=== PATIENT | male | born 1955 | race Caucasian/White ===

== ENCOUNTER 2021-07-31 10:37 | Emergency (ER) | payer MEDICARE, OTHER ==
[~2021-07-31] VITALS: Ht 175.3 cm; Wt 93.4 kg
[2021-07-31 12:08] LABS: BILIRUBIN,URINE NEGATIVE (NEGATIVE); COLOR,URINE YELLOW (YELLOW); LEUKOCYTE ESTERASE ,URINE NEGATIVE (NEGATIVE); NITRITE, URINE NEGATIVE (NEGATIVE); PROTEIN,URINE NEGATIVE (NEGATIVE); UGLUCOSE NEGATIVE (NEGATIVE); UROBILINOGEN,URINE 0.2 EU/dL (0.2)
[2021-07-31 12:40] LABS: BASOPHILS # (AUTO) 0.1 K/uL (0.0-0.2); EOSINOPHILS % (AUTO) 1.4 % (0.0-6.0); HEMATOCRIT 40 % (39-51); HEMOGLOBIN 13.6 g/dL (13.5-17.5); LYMPHOCYTES # (AUTO) 2.2 K/uL (0.8-4.8); MEAN CORPUSCULAR HGB CONC 34 g/dl (31.0-36.0); MEAN CORPUSCULAR VOLUME 86 fL (80-96); MONOCYTES # (AUTO) 0.9 K/uL (0.1-1.30); MONOCYTES % (AUTO) 9.4 % (2.0-12.0); NEUTROPHILS # (AUTO) 6.3 K/uL (1.8-8.9); NEUTROPHILS % (AUTO) 65.2 % (43.0-81.0); PLATELET COUNT (AUTO) 189 K/uL (150-450); WHITE BLOOD COUNT (AUTO) 9.7 K/uL (4.3-11.0)
[2021-07-31 12:53] LABS: CALCIUM, SERUM 8.9 mg/dL (8.5-10.1); CARBON DIOXIDE 26 mmol/L (21-32); CHLORIDE 105 mmol/L (98-107); CREATININE 0.9 mg/dL (0.6-1.3); GLUCOSE 108 mg/dL (74-106); POTASSIUM 3.8 mmol/L (3.5-5.1); SODIUM SERUM 141 mmol/L (136-145); UREA NITROGEN, BLOOD 17 mg/dL (7-18)
[2021-07-31 12:58] LABS: ALANINE AMINOTRANSFERASE 46 U/L (12-78); ALBUMIN 3.6 g/dL (3.4-5.0); ALCOHOL, BLOOD < 3 mg/dL (0-0); ALKALINE PHOSPHATASE 114 U/L (46-116); ASPARTATE AMINOTRANSFERASE 37 U/L (15-37); BILIRUBIN,DIRECT 0.2 mg/dL (0.0-0.2); BILIRUBIN,TOTAL 0.7 mg/dL (0.2-1.0); TOTAL PROTEIN, SERUM 7.2 g/dL (6.4-8.2)
[2021-07-31 13:45] LABS: ACETAMINOPHEN 0 ug/ml (10-30)
[2021-07-31 20:01] VITALS: BP 147/78
== END 2021-07-31 20:10 ==
LOC: ER 10:38
DX: F29 Unspecified psychosis not due to a substance or known physiological condition (principal); Z91.14 Patient's other noncompliance with medication regimen; Z88.8 Allergy status to other drugs, medicaments and biological substances; F17.200 Nicotine dependence, unspecified, uncomplicated; I10 Essential (primary) hypertension; Z20.822 Contact with and (suspected) exposure to COVID-19
CPT/HCPCS: 36415; 80048-TC; 80076-TC; 85025-TC; C9803; G0480

== ENCOUNTER 2022-01-09 16:57 | Emergency (ER) | payer MEDICARE, OTHER ==
[~2022-01-09] VITALS: Ht 175.3 cm; Wt 90.7 kg
--- NOTE | 2022-01-09 17:15 | NUR ---
THE PATIENT BIBS FOR C/O SUICIDAL IDEATION, REQUESTING VOLUNTARY ADMISSION TO [facility],PLAN TO WALK ON [address] DENIES HI. DENIES HAVING ANY VISUAL OR AUDITORY HALLUCINATIONS. WILL CONTINUE TO MONITOR THE PATIENT.
[2022-01-09 18:27] LABS: BASOPHILS # (AUTO) 0.2 K/uL (0.0-0.2); BASOPHILS % (AUTO) 1.5 % (0.0-2.0); EOSINOPHILS % (AUTO) 2.5 % (0.0-6.0); HEMATOCRIT 38 % (39-51); HEMOGLOBIN 12.3 g/dL (13.5-17.5); LYMPHOCYTES # (AUTO) 3.5 K/uL (0.8-4.8); LYMPHOCYTES % (AUTO) 29.7 % (20.0-44.0); MEAN CORPUSCULAR HGB CONC 33 g/dl (31.0-36.0); MEAN CORPUSCULAR VOLUME 86 fL (80-96); MONOCYTES # (AUTO) 1.2 K/uL (0.1-1.30); MONOCYTES % (AUTO) 10.6 % (2.0-12.0); NEUTROPHILS # (AUTO) 6.5 K/uL (1.8-8.9); NEUTROPHILS % (AUTO) 55.7 % (43.0-81.0); RED BLOOD CELL COUNT(AUTO) 4.41 MIL/uL (4.5-6.0); WHITE BLOOD COUNT (AUTO) 11.7 K/uL (4.3-11.0)
[2022-01-09 18:36] LABS: CALCIUM, SERUM 8.5 mg/dL (8.5-10.1); CARBON DIOXIDE 26 mmol/L (21-32); CHLORIDE 106 mmol/L (98-107); CREATININE 1.1 mg/dL (0.6-1.3); GLUCOSE 109 mg/dL (74-106); POTASSIUM 3.7 mmol/L (3.5-5.1); SODIUM SERUM 139 mmol/L (136-145); UREA NITROGEN, BLOOD 16 mg/dL (7-18)
[2022-01-09 18:43] LABS: BILIRUBIN,URINE NEGATIVE (NEGATIVE); COLOR,URINE YELLOW (YELLOW); LEUKOCYTE ESTERASE ,URINE NEGATIVE (NEGATIVE); NITRITE, URINE NEGATIVE (NEGATIVE); PROTEIN,URINE NEGATIVE (NEGATIVE); UGLUCOSE NEGATIVE (NEGATIVE)
[2022-01-09 18:46] LABS: ALANINE AMINOTRANSFERASE 32 U/L (12-78); ALBUMIN 3.2 g/dL (3.4-5.0); ALKALINE PHOSPHATASE 122 U/L (46-116); ASPARTATE AMINOTRANSFERASE 31 U/L (15-37); BILIRUBIN,DIRECT 0.1 mg/dL (0.0-0.2); BILIRUBIN,TOTAL 0.3 mg/dL (0.2-1.0); TOTAL PROTEIN, SERUM 6.7 g/dL (6.4-8.2)
[2022-01-09 18:50] LABS: BACTERIA,URINE None seen /HPF (None Seen); MUCUS,URINE Many /LPF (None Seen); RBC,URINE 0-2 /HPF (0-2); SQUAMOUS EPITHELIAL CELL,UR 0-2 /HPF (None Seen); WBC,URINE 0-2 /HPF (0-3)
[2022-01-09 18:58] LABS: ALCOHOL, BLOOD < 3 mg/dL (0-0); PLATELET COUNT (AUTO) 201 K/uL (150-450)
--- NOTE | 2022-01-09 19:09 | NUR ---
covid antigen swab done and sent to the lab
[2022-01-09 21:00] VITALS: BP 128/68
--- NOTE | 2022-01-09 21:48 | NUR ---
FAXED FACSHEET AND CLINICALS TO [facility]N INTAKE
--- NOTE | 2022-01-09 22:56 | NUR ---
PATIENT ACCEPTED UNDER DR RAMESH AT [facility] REPORT [phone]
--- NOTE | 2022-01-09 23:03 | NUR ---
[facility] ETA: 60-45 MIN
--- NOTE | 2022-01-10 00:02 | NUR ---
REPORT GIVEN TO JR
--- NOTE | 2022-01-10 00:15 | NUR ---
REPORT GIVEN TO EMS AT BEDSIDE
== END 2022-01-10 00:25 ==
LOC: ER 17:09
DX: R45.851 Suicidal ideations (principal); I10 Essential (primary) hypertension; F32.A Depression, unspecified; F17.200 Nicotine dependence, unspecified, uncomplicated; S30.810A Abrasion of lower back and pelvis, initial encounter; W45.0XXA Nail entering through skin, initial encounter; Y92.89 Other specified places as the place of occurrence of the external cause; Z59.00 Homelessness unspecified; Z20.822 Contact with and (suspected) exposure to COVID-19
CPT/HCPCS: 36415; 80048-TC; 80076-TC; 81001; 85025-TC; C9803; G0480

== ENCOUNTER 2022-01-21 08:09 | Emergency (ER) | payer MEDICARE, OTHER ==
[~2022-01-21] VITALS: Ht 175.3 cm; Wt 90.7 kg
--- NOTE | 2022-01-21 08:13 | NUR ---
BIBS WITH SI -HI, STATED HE WANTS TO WALK ONTO THE [address] IN [place], STATED THAT HIS FAMILY HAS ALL AND HE HAS BEEN DEPRESSED SINCE. PT IS AMBULATORY WITHOUT ASSISTANCE. VITALS ARE WITHIN NORMAL [place]. PT WAS WANDED BY SECURITY AND BELONGINGS COLLECTED, PT STICKER PLACED ON BELONGING BAG AND STORED. SAEFTY MEASURE APPLIED.
--- NOTE | 2022-01-21 08:14 | NUR ---
Quinn sinha in [facility] - 01/21/22 at 0857 by SILAS AB TEST COLLECTED AND SENT
--- NOTE | 2022-01-21 08:14 | NUR ---
COVID TEST COLLECTED AND SENT
--- NOTE | 2022-01-21 08:17 | NUR ---
SANTOSH JAIN TO PROVIDE URINE AT THIS TIME, PROVIDED WITH URINE SAMPLE CUP.
[2022-01-21] MEDS ORDERED: LORAZEPAM 1 MG TABLET PO ONE (09:00)
[2022-01-21] MEDS ORDERED: LORAZEPAM 1 MG TABLET ONE (09:15)
[2022-01-21 09:16] LABS: CALCIUM, SERUM 8.5 mg/dL (8.5-10.1); CARBON DIOXIDE 25 mmol/L (21-32); CHLORIDE 104 mmol/L (98-107); CREATININE 0.9 mg/dL (0.6-1.3); GLUCOSE 124 mg/dL (74-106); POTASSIUM 4.1 mmol/L (3.5-5.1); SODIUM SERUM 135 mmol/L (136-145); UREA NITROGEN, BLOOD 18 mg/dL (7-18)
[2022-01-21 09:22] LABS: ALANINE AMINOTRANSFERASE 36 U/L (12-78); ALBUMIN 2.9 g/dL (3.4-5.0); ALKALINE PHOSPHATASE 123 U/L (46-116); ASPARTATE AMINOTRANSFERASE 40 U/L (15-37); BILIRUBIN,DIRECT 0.1 mg/dL (0.0-0.2); BILIRUBIN,TOTAL 0.4 mg/dL (0.2-1.0); TOTAL PROTEIN, SERUM 6.8 g/dL (6.4-8.2)
[2022-01-21 09:23] LABS: ACETAMINOPHEN 0 ug/ml (10-30); ALCOHOL, BLOOD < 3 mg/dL (0-0)
[2022-01-21 09:57] LABS: BASOPHILS # (AUTO) 0.1 K/uL (0.0-0.2); BASOPHILS % (AUTO) 1.2 % (0.0-2.0); HEMATOCRIT 39 % (39-51); HEMOGLOBIN 12.6 g/dL (13.5-17.5); LYMPHOCYTES # (AUTO) 2.7 K/uL (0.8-4.8); LYMPHOCYTES % (AUTO) 28.6 % (20.0-44.0); MEAN CORPUSCULAR HGB CONC 33 g/dl (31.0-36.0); MEAN CORPUSCULAR VOLUME 86 fL (80-96); MONOCYTES # (AUTO) 1.1 K/uL (0.1-1.30); MONOCYTES % (AUTO) 11.8 % (2.0-12.0); NEUTROPHILS # (AUTO) 5.1 K/uL (1.8-8.9); NEUTROPHILS % (AUTO) 55.4 % (43.0-81.0); PLATELET COUNT (AUTO) 173 K/uL (150-450); RED BLOOD CELL COUNT(AUTO) 4.51 MIL/uL (4.5-6.0); WHITE BLOOD COUNT (AUTO) 9.3 K/uL (4.3-11.0)
--- NOTE | 2022-01-21 10:43 | NUR ---
PT UNABLE TO PROVIDE URINE AT THIS TIME, MILK PROVIDED TO PT.
--- NOTE | 2022-01-21 11:02 | NUR ---
FAXED CLINICALS TO [facility]
--- NOTE | 2022-01-21 11:14 | NUR ---
ASK PT TO PROVIDE URINE SAID THAT HE NEEDED MORE MILK, MILK PROVIDED. WILL ENCOURAGE AGAIN.
[2022-01-21 13:07] LABS: BILIRUBIN,URINE NEGATIVE (NEGATIVE); COLOR,URINE YELLOW (YELLOW); LEUKOCYTE ESTERASE ,URINE NEGATIVE (NEGATIVE); NITRITE, URINE NEGATIVE (NEGATIVE); PROTEIN,URINE NEGATIVE (NEGATIVE); UGLUCOSE NEGATIVE (NEGATIVE); UROBILINOGEN,URINE 0.2 EU/dL (0.2)
[2022-01-21 13:45] VITALS: BP 139/79
--- NOTE | 2022-01-21 18:01 | NUR ---
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
--- NOTE | 2022-01-21 18:55 | NUR ---
REPORT GIVEN TO MARIZA FOR [facility]
== END 2022-01-21 19:11 ==
LOC: ER 08:12
DX: R45.851 Suicidal ideations (principal); I10 Essential (primary) hypertension; Z86.69 Personal history of other diseases of the nervous system and sense organs; Z88.8 Allergy status to other drugs, medicaments and biological substances; E11.9 Type 2 diabetes mellitus without complications; Z20.822 Contact with and (suspected) exposure to COVID-19
CPT/HCPCS: 36415; 80048-TC; 80076-TC; 85025-TC; C9803; G0480

== ENCOUNTER 2022-02-07 17:51 | Emergency (ER) | payer MEDICARE, OTHER ==
[~2022-02-07] VITALS: Ht 175.3 cm; Wt 90.7 kg
--- NOTE | 2022-02-07 18:25 | NUR ---
SECURITY PERSONAL AT BEDSIDE FOR WANDING
--- NOTE | 2022-02-07 18:26 | NUR ---
UNABLE TO PROVIDE URINE AT THIS TIME
--- NOTE | 2022-02-07 18:26 | NUR ---
COVID SWAB DONE AND SENT TO LAB
[2022-02-07 18:28] VITALS: BP 145/92
--- NOTE | 2022-02-07 18:45 | NUR ---
Pt refusing any and all interventions at this time. Dr Doshi aware
--- NOTE | 2022-02-07 19:02 | NUR ---
Pt No longer in the room - Eloped
== END 2022-02-07 19:03 | disposition home or self-care (01) ==
LOC: ER 18:10
DX: R45.851 Suicidal ideations (principal); I10 Essential (primary) hypertension; E11.9 Type 2 diabetes mellitus without complications; F32.A Depression, unspecified; F17.200 Nicotine dependence, unspecified, uncomplicated; Z60.2 Problems related to living alone

== ENCOUNTER 2022-03-23 11:55 | Emergency (ER) | payer MEDICARE, OTHER ==
[~2022-03-23] VITALS: Ht 175.3 cm; Wt 90.7 kg
[2022-03-23 12:59] LABS: BASOPHILS # (AUTO) 0.1 K/uL (0.0-0.2); EOSINOPHILS % (AUTO) 3.1 % (0.0-6.0); HEMATOCRIT 43 % (39-51); HEMOGLOBIN 13.9 g/dL (13.5-17.5); LYMPHOCYTES # (AUTO) 3.9 K/uL (0.8-4.8); MEAN CORPUSCULAR HGB CONC 32 g/dl (31.0-36.0); MEAN CORPUSCULAR VOLUME 85 fL (80-96); MONOCYTES # (AUTO) 1.1 K/uL (0.1-1.30); MONOCYTES % (AUTO) 9.4 % (2.0-12.0); NEUTROPHILS # (AUTO) 6.4 K/uL (1.8-8.9); NEUTROPHILS % (AUTO) 53.5 % (43.0-81.0); PLATELET COUNT (AUTO) 198 K/uL (150-450); RED BLOOD CELL COUNT(AUTO) 5.02 MIL/uL (4.5-6.0)
--- NOTE | 2022-03-23 13:02 | NUR ---
COVID SWAB DONE AND SENT TO LAB
[2022-03-23 13:23] LABS: ALANINE AMINOTRANSFERASE 36 U/L (12-78); ALBUMIN 3.7 g/dL (3.4-5.0); ALCOHOL, BLOOD < 3 mg/dL (0-0); ALKALINE PHOSPHATASE 123 U/L (46-116); ASPARTATE AMINOTRANSFERASE 40 U/L (15-37); BILIRUBIN,DIRECT 0.2 mg/dL (0.0-0.2); BILIRUBIN,TOTAL 0.6 mg/dL (0.2-1.0); CALCIUM, SERUM 9.1 mg/dL (8.5-10.1); CARBON DIOXIDE 31 mmol/L (21-32); CHLORIDE 102 mmol/L (98-107); CREATININE 0.9 mg/dL (0.6-1.3); GLUCOSE 103 mg/dL (74-106); POTASSIUM 3.9 mmol/L (3.5-5.1); SODIUM SERUM 139 mmol/L (136-145); TOTAL PROTEIN, SERUM 7.4 g/dL (6.4-8.2); UREA NITROGEN, BLOOD 17 mg/dL (7-18)
[2022-03-23 13:25] LABS: ACETAMINOPHEN < 10 ug/ml (10-30)
[2022-03-23 13:59] LABS: BILIRUBIN,URINE NEGATIVE (NEGATIVE); COLOR,URINE YELLOW (YELLOW); LEUKOCYTE ESTERASE ,URINE NEGATIVE (NEGATIVE); NITRITE, URINE NEGATIVE (NEGATIVE); PROTEIN,URINE TRACE mg/dl (NEGATIVE); UGLUCOSE NEGATIVE (NEGATIVE); UROBILINOGEN,URINE 0.2 EU/dL (0.2)
[2022-03-23 14:19] LABS: BACTERIA,URINE Few /HPF (None Seen); RBC,URINE 0-2 /HPF (0-2); WBC,URINE 0-2 /HPF (0-3)
--- NOTE | 2022-03-23 15:00 | NUR ---
FAXED CLINICALS TO [facility] INTAKE.
--- NOTE | 2022-03-23 16:12 | NUR ---
ACCEPTED PER RAFAEL OLIVIA, WILL SEND ADMITTING INFO
--- NOTE | 2022-03-23 16:30 | NUR ---
ACCEPTED TO [facility] UNDER DR BOYKIN NUMBER FOR REPORT [phone] ASKED TO SET UP TRANSPORTATION AFTER SHIFT ([phone])
--- NOTE | 2022-03-23 16:37 | NUR ---
[facility] CALLED FOR TRANSPORT TO [facility] REQUESTED > CHANGE OF SHIFT 2000 PULP AND PAPER TESTER TIME PER ANNI.
--- NOTE | 2022-03-23 19:52 | NUR ---
REPORT GIVEN TO RACQUEL OLIVIA
--- NOTE | 2022-03-23 20:00 | NUR ---
PT RECEIVED IN BED 18. AWAITING TRANSFER TO [facility]. PT IS ALREADY MEDICALLY CLEARED. NO DISTRESS NOTED. PT WAS PLACED IN GOWN AND BELONGINGS TAKEN.
--- NOTE | 2022-03-23 21:51 | NUR ---
[facility] AMBULANCE AT BEDSIDE FOR TRANSPORT TO [facility]. PT IS IN STABLE CONDITION FOR TRANSPORT. NAD NOTED. PT IS AMBUALTORY.
[2022-03-23 21:52] VITALS: BP 140/83
== END 2022-03-23 21:54 ==
LOC: ER 12:00
DX: Z20.822 Contact with and (suspected) exposure to COVID-19 (principal); E11.9 Type 2 diabetes mellitus without complications; G40.909 Epilepsy, unspecified, not intractable, without status epilepticus; Z91.14 Patient's other noncompliance with medication regimen; I10 Essential (primary) hypertension; F17.200 Nicotine dependence, unspecified, uncomplicated; D72.829 Elevated white blood cell count, unspecified; R74.01 Elevation of levels of liver transaminase levels
CPT/HCPCS: 36415; 80048-TC; 80076-TC; 81001; 85025-TC; C9803; G0480

== ENCOUNTER 2024-06-01 14:53 | Inpatient (IN) | payer MEDICARE, OTHER ==
[~2024-06-01] VITALS: Ht 175.3 cm; Wt 90.7 kg
[2024-06-01] MEDS ORDERED: OLANZAPINE 10 MG VIAL IM ONE (15:16)
[2024-06-01] MEDS ORDERED: LORAZEPAM INJ 2 MG/ML VIAL ONE (15:17)
[2024-06-01] MEDS: LORAZEPAM INJ 2 MG/ML VIAL IM ONE (15:20)
[2024-06-01] MEDS: OLANZAPINE 10 MG VIAL IM ONE (15:21)
[2024-06-01] MEDS ORDERED: diphenhydrAMINE HCL 50 MG/ML VIAL ONE (16:12)
[2024-06-01] MEDS: diphenhydrAMINE HCL 50 MG/ML VIAL IM ONE (16:13)
[2024-06-01 16:47] LABS: BASOPHILS # (AUTO) 0.2 K/uL (0.0-0.2); BASOPHILS % (AUTO) 1.5 % (0.0-2.0); EOSINOPHILS # (AUTO) 0.3 K/uL (0.0-0.7); EOSINOPHILS % (AUTO) 2.3 % (0.0-6.0); HEMATOCRIT 41 % (39-51); HEMOGLOBIN 13.7 g/dL (13.5-17.5); LYMPHOCYTES # (AUTO) 2.3 K/uL (0.8-4.8); LYMPHOCYTES % (AUTO) 18.9 % (20.0-44.0); MEAN CORPUSCULAR HEMOGLOBIN 30 PG (26.0-33.0); MEAN CORPUSCULAR HGB CONC 33 g/dl (31.0-36.0); MEAN CORPUSCULAR VOLUME 89 fL (80-96); MONOCYTES # (AUTO) 0.9 K/uL (0.1-1.30); MONOCYTES % (AUTO) 6.9 % (2.0-12.0); NEUTROPHILS # (AUTO) 8.7 K/uL (1.8-8.9); NEUTROPHILS % (AUTO) 70.4 % (43.0-81.0); PLATELET COUNT (AUTO) 196 K/uL (150-450); RED BLOOD CELL COUNT(AUTO) 4.65 MIL/uL (4.5-6.0); RED CELL DISTRIBUTION WIDTH 15.4 % (11.5-15.0); WHITE BLOOD COUNT (AUTO) 12.4 K/uL (4.3-11.0)
[2024-06-01 16:57] LABS: ALANINE AMINOTRANSFERASE 39 U/L (12-78); ALBUMIN 3.5 g/dL (3.4-5.0); ALCOHOL, BLOOD < 3 mg/dL (0-10); ALKALINE PHOSPHATASE 159 U/L (46-116); ASPARTATE AMINOTRANSFERASE 26 U/L (15-37); BILIRUBIN,DIRECT 0.2 mg/dL (0.0-0.2); BILIRUBIN,TOTAL 0.6 mg/dL (0.2-1.0); CALCIUM, SERUM 8.8 mg/dL (8.5-10.1); CARBON DIOXIDE 27 mmol/L (21-32); CHLORIDE 102 mmol/L (98-107); GLUCOSE 107 mg/dL (74-106); POTASSIUM 3.5 mmol/L (3.5-5.1); SALICYLATE 2.9 mg/dL (2.8-20.0); SODIUM SERUM 136 mmol/L (136-145); TOTAL PROTEIN, SERUM 6.8 g/dL (6.4-8.2); UREA NITROGEN, BLOOD 17 mg/dL (7-18)
[2024-06-01 17:01] LABS: ACETAMINOPHEN 0 ug/ml (10-30)
[2024-06-01 18:23] LABS: APPEARANCE,URINE Clear (CLEAR); BILIRUBIN,URINE Negative (NEGATIVE); BLOOD, URINE Negative Ery/uL (NEGATIVE); COLOR,URINE YELLOW (YELLOW); KETONES,URINE Negative (NEGATIVE); LEUKOCYTE ESTERASE ,URINE Negative (NEGATIVE); NITRITE, URINE Negative (NEGATIVE); PH,URINE 6.5 (5.0-8.0); PROTEIN,URINE Negative (NEGATIVE); UGLUCOSE Negative (NEGATIVE); UROBILINOGEN,URINE 0.2 EU/dL (0.2)
[2024-06-01 18:33] LABS: AMPHETAMINE, URINE NEGATIVE (NEGATIVE); BARBITURATE, URINE NEGATIVE (NEGATIVE); BENZODIAZEPINE, URINE NEGATIVE (NEGATIVE); CANNABINOID, URINE NEGATIVE (NEGATIVE); COCCAINE, URINE NEGATIVE (NEGATIVE); OPIATE, URINE NEGATIVE (NEGATIVE); PHENCYCLIDINE SCREEN,URINE NEGATIVE (NEGATIVE)
[2024-06-01] MEDS ORDERED: ASPI-1169 PO (21:20)
[2024-06-01] MEDS ORDERED: AMLO-213 PO (21:20)
[2024-06-01] MEDS ORDERED: ARIP15TA3 PO (21:20)
[2024-06-01] MEDS ORDERED: LISI20TA30 PO (21:20)
[2024-06-01] MEDS ORDERED: BUPR150T10 PO (21:20)
[2024-06-02] MEDS ORDERED: LORAZEPAM 0.5 MG TABLET PO PRN (03:30)
[2024-06-02] MEDS ORDERED: MAG HYDROX/AL HYDROX/SIMETH 30 ML UDC PO PRN (03:30)
[2024-06-02] MEDS ORDERED: ACETAMINOPHEN 325 MG TABLET PO PRN (03:30)
[2024-06-02] MEDS ORDERED: TEMAZEPAM 7.5 MG CAPSULE PO PRN (03:30)
[2024-06-02] MEDS ORDERED: MAGNESIUM HYDROXIDE 30 ML UDC PO PRN (03:30)
[2024-06-02] MEDS: BLOOD SUGAR DIAGNOSTIC 1 EACH STRIP IN ONE (03:40)
[2024-06-02 08:00] VITALS: BP 107/91; TEMP 97.8; O2SAT 97
[2024-06-02] MEDS: risperiDONE 1 MG TABLET PO SCH (13:42)
[2024-06-02] MEDS: DIVALPROEX SODIUM 500 MG TABLET.DR PO SCH (13:42)
[2024-06-02 16:00] VITALS: BP 141/69; TEMP 98.9; O2SAT 96
[2024-06-02 20:25] VITALS: BP 162/110; TEMP 98.2; O2SAT 98
[2024-06-02] MEDS: TEMAZEPAM 7.5 MG CAPSULE PO PRN (20:46)
[2024-06-02 21:15] VITALS: BP 140/90; TEMP 98.3; O2SAT 98
[2024-06-03 08:20] VITALS: BP 180/90; TEMP 98.1; O2SAT 98
[2024-06-03] MEDS: LISINOPRIL (20MG) 20 MG TABLET PO SCH (08:40)
[2024-06-03] MEDS: AMLODIPINE BESYLATE 10 MG TABLET PO SCH (08:40)
[2024-06-03] MEDS: ASPIRIN 81 MG TAB.CHEW PO SCH (08:41)
[2024-06-03 10:00] VITALS: BP 142/77
[2024-06-03 15:50] VITALS: BP 168/83; TEMP 98; O2SAT 98
[2024-06-03] MEDS: CLONIDINE HCL 0.1 MG TABLET PO ONE (17:17)
[2024-06-03] MEDS: risperiDONE 1 MG TABLET PO SCH (17:17)
[2024-06-03 18:45] VITALS: BP 114/46
[2024-06-03 20:00] VITALS: BP 108/54; TEMP 98.3; O2SAT 98
[2024-06-04 08:00] VITALS: BP 148/80; TEMP 97.9; O2SAT 99
[2024-06-04] MEDS: LISINOPRIL (20MG) 20 MG TABLET PO SCH (08:08)
[2024-06-04] MEDS: risperiDONE 1 MG TABLET PO SCH ×3 (08:12→21:35)
[2024-06-04] MEDS ORDERED: risperiDONE 1 MG TABLET PO SCH (13:00)
[2024-06-04] MEDS: BENZTROPINE MESYLATE (1 MG) 1 MG TABLET PO SCH (16:15)
[2024-06-04 19:47] VITALS: BP 144/65; TEMP 98.4
[2024-06-05] MEDS: HYDROCHLOROTHIAZIDE 25 MG TABLET PO SCH (13:30)
[2024-06-05 16:00] VITALS: BP 151/77; TEMP 98.6; O2SAT 98
[2024-06-05 21:14] VITALS: BP 114/49; TEMP 98.2; O2SAT 97
[2024-06-06 08:00] VITALS: BP 129/58; TEMP 98.2; O2SAT 100
[2024-06-06 16:00] VITALS: BP 165/73; TEMP 97.6; O2SAT 100
[2024-06-06] MEDS: LORAZEPAM 0.5 MG TABLET PO PRN (16:15)
[2024-06-06 21:00] VITALS: BP 168/79; TEMP 98.2; O2SAT 98
[2024-06-07 08:00] VITALS: BP 147/76; TEMP 97.9; O2SAT 96
[2024-06-07 16:00] VITALS: BP 160/77; TEMP 98.7; O2SAT 98
[2024-06-07 20:32] VITALS: BP 154/84; TEMP 98.7; O2SAT 100
[2024-06-08 08:00] VITALS: BP 153/70; TEMP 98; O2SAT 96
[2024-06-08 16:00] VITALS: BP 149/75; TEMP 98.7; O2SAT 97
[2024-06-08] MEDS: risperiDONE-M 0.5 MG TAB.RAPDIS PO SCH ×2 (17:09→21:23)
[2024-06-08] MEDS: OXCARBAZEPINE 150 MG TABLET PO SCH (17:10)
[2024-06-08 20:06] VITALS: BP 151/64; TEMP 98.5; O2SAT 96
[2024-06-08 22:32] VITALS: BP 129/98; TEMP 98.1; O2SAT 98
[2024-06-09 08:00] VITALS: BP 157/69; TEMP 98.4; O2SAT 98
[2024-06-09] MEDS: hydrALAZINE HCL 25 MG TABLET PO SCH (13:10)
[2024-06-09 16:00] VITALS: BP 155/70; TEMP 98.2; O2SAT 97
[2024-06-09 20:00] VITALS: BP 153/78; TEMP 98.4; O2SAT 98
[2024-06-10 08:00] VITALS: BP 144/82; TEMP 98.2; O2SAT 97
[2024-06-10 16:00] VITALS: BP 119/66; TEMP 97.9; O2SAT 98
[2024-06-10 20:07] VITALS: BP 140/72; TEMP 98.4; O2SAT 98
[2024-06-11 08:00] VITALS: BP 148/73; TEMP 98.6; O2SAT 98
[2024-06-11 12:08] VITALS: BP 142/67
[2024-06-12] MEDS ORDERED: BENZ0.5T43 PO (12:25)
[2024-06-12] MEDS ORDERED: HYDR12.55 PO (12:25)
[2024-06-12] MEDS ORDERED: ACET325T53 PO (12:25)
[2024-06-12] MEDS ORDERED: MAG30ORA PO (12:25)
[2024-06-12] MEDS ORDERED: LORA-258 PO (12:25)
[2024-06-12] MEDS ORDERED: MAGN400O6 PO (12:25)
[2024-06-12] MEDS ORDERED: OXCA300T15 PO (12:25)
[2024-06-12] MEDS ORDERED: TEMA7.5C12 PO (12:25)
[2024-06-12] MEDS ORDERED: RISP2TAB85 PO ×2 (12:25)
[2024-06-12] MEDS ORDERED: HYDR-4076 PO (12:25)
[2024-06-12] MEDS ORDERED: DIVA500T2 PO (12:25)
== END 2024-06-11 13:55 | DRG 885 ==
LOC: ER 15:00 → GPS 20:36
PROVIDERS: ADMIT Psychiatry & Neurology Psychosomatic Medicine
DX: F29 Unspecified psychosis not due to a substance or known physiological condition (principal); Z59.01 Sheltered homelessness; G93.40 Encephalopathy, unspecified; F25.0 Schizoaffective disorder, bipolar type; I10 Essential (primary) hypertension; F32.A Depression, unspecified; Z91.199 Patient's noncompliance with other medical treatment and regimen due to unspecified reason; G40.909 Epilepsy, unspecified, not intractable, without status epilepticus; F19.10 Other psychoactive substance abuse, uncomplicated; E11.9 Type 2 diabetes mellitus without complications; Z79.82 Long term (current) use of aspirin; Z79.899 Other long term (current) drug therapy; Z81.8 Family history of other mental and behavioral disorders; D72.829 Elevated white blood cell count, unspecified; Z88.8 Allergy status to other drugs, medicaments and biological substances
CPT/HCPCS: 36415; 80048-TC; 80076-TC; 85025-TC; G0480; J1200; J2060; J3490

== ENCOUNTER 2024-06-12 10:15 | Emergency (ER) | payer MEDICARE, OTHER ==
[~2024-06-12] VITALS: Ht 175.3 cm; Wt 90.7 kg
[~2024-06-12 10:15] MED LIST: AMLO-213 PO; ARIP15TA3 PO; ASPI-1169 PO; BUPR150T10 PO; LISI20TA30 PO
[2024-06-12] MEDS ORDERED: TEMA7.5C12 PO (12:25)
[2024-06-12] MEDS ORDERED: BENZ0.5T43 PO (12:25)
[2024-06-12] MEDS ORDERED: HYDR12.55 PO (12:25)
[2024-06-12] MEDS ORDERED: MAGN400O6 PO (12:25)
[2024-06-12] MEDS ORDERED: MAG30ORA PO (12:25)
[2024-06-12] MEDS ORDERED: RISP2TAB85 PO ×2 (12:25)
[2024-06-12] MEDS ORDERED: DIVA500T2 PO (12:25)
[2024-06-12] MEDS ORDERED: ACET325T53 PO (12:25)
[2024-06-12] MEDS ORDERED: OXCA300T15 PO (12:25)
[2024-06-12] MEDS ORDERED: HYDR-4076 PO (12:25)
[2024-06-12] MEDS ORDERED: LORA-258 PO (12:25)
[2024-06-12 14:54] VITALS: BP 159/70; TEMP 97.9; O2SAT 99
== END 2024-06-12 14:00 | disposition home or self-care (01) ==
LOC: ER 10:23
DX: F29 Unspecified psychosis not due to a substance or known physiological condition (principal); E11.9 Type 2 diabetes mellitus without complications; F17.200 Nicotine dependence, unspecified, uncomplicated; I10 Essential (primary) hypertension; Z79.82 Long term (current) use of aspirin; Z79.899 Other long term (current) drug therapy; Z86.69 Personal history of other diseases of the nervous system and sense organs

== ENCOUNTER 2024-09-24 13:50 | Emergency (ER) | payer MEDICARE, OTHER ==
[~2024-09-24] VITALS: Ht 172.7 cm; Wt 90.7 kg
[~2024-09-24 13:50] MED LIST changes: +ACET325T53 PO; -ARIP15TA3 PO; +BENZ0.5T43 PO; -BUPR150T10 PO; +DIVA500T2 PO; +HYDR-4076 PO; +HYDR12.55 PO; +LORA-258 PO; +MAG30ORA PO; +MAGN400O6 PO; +OXCA300T15 PO; +RISP2TAB85 PO; +TEMA7.5C12 PO
[2024-09-24] MEDS ORDERED: KETOROLAC TROMETHAMINE 15 MG/ML VIAL ONE (15:41)
[2024-09-24] MEDS: KETOROLAC TROMETHAMINE 15 MG/ML VIAL IM ONE (15:52)
[2024-09-24 16:12] VITALS: BP 144/71; TEMP 97.9; O2SAT 98
== END 2024-09-24 16:23 | disposition home or self-care (01) ==
LOC: ER 13:55
DX: R45.851 Suicidal ideations (principal); E11.9 Type 2 diabetes mellitus without complications; F17.200 Nicotine dependence, unspecified, uncomplicated; F32.A Depression, unspecified; I10 Essential (primary) hypertension; Z59.00 Homelessness unspecified; Z79.82 Long term (current) use of aspirin; Z79.899 Other long term (current) drug therapy; Z20.822 Contact with and (suspected) exposure to COVID-19
CPT/HCPCS: 99285; 87426; 96372; J1885